=== PATIENT | male | born 1995 | race African-American/Black ===

== ENCOUNTER 2023-11-20 15:26 | Emergency (ER) | payer OTHER, SELFPAY ==
[2023-11-20 15:45] VITALS: BP 168/85; PULSE 93; RESP 18; TEMP 37.1; O2SAT 97; BMI 26.6
[2023-11-20 16:39] LABS: Influenza A - CEPHEID Flu A NEGATIVE (NEGATIVE); Influenza B - CEPHEID Flu B NEGATIVE (NEGATIVE); Respiratory Syncytial Virus Negative (Negative)
[2023-11-20 16:40] LABS: COVID-19 CEPHEID 4-PLEX PCR Negative (Negative)
--- NOTE | 2023-11-20 16:51 | ED_ITS ---
HPI - URI/Sore Throat General Chief Complaint: Upper Respiratory Symptoms Stated Complaint: Full Body Aches Time Seen by Provider: 11/20/23 16:30 Source: patient Mode of arrival: EMS History of Present Illness HPI Narrative: 28-year-old male presents to the ED with 2 days of sore throat, all-over myalgias. Patient states that starting yesterday, he started experiencing a sore throat, all-over body aches. Patient also complains of a headache that started this morning. Patient states that he consumed a lot of alcohol 3 days ago, might have passed out at the end of the evening. His symptoms started the next day. Patient states that he has been feeling very dehydrated, has been drinking a lot of water and Gatorade. Patient also complains lack of appetite. Patient denies chest pain, shortness of breath. Patient endorses subjective fever. Denies nausea, vomiting, diarrhea. Related Data Allergies Allergy/AdvReac Type Severity Reaction Status Date / Time amoxicillin AdvReac Verified 11/20/23 15:45 Penicillins AdvReac Hives Verified 11/20/23 15:45 Review of Systems Constitutional Constitutional: Denies chills, Denies fatigue, Reports fever(s), Denies frequent falls, Reports headache(s), Denies lethargy, Reports poor appetite and Denies weakness Eyes Eyes: Denies change in vision, Denies eye discharge, Denies irritation and Denies loss of vision ENT Ears, Nose, Mouth, and Throat: Denies change in voice, Denies dizziness, Reports headache(s), Denies neck pain, Reports sore throat and Denies throat swelling Cardiovascular Cardiovascular: Denies chest pain, Denies irregular heart rhythm, Denies lightheadedness, Denies palpitations, Denies dyspnea, Denies dyspnea on exertion and Denies orthopnea Respiratory Respiratory: Denies cough, Denies dyspnea, Denies dyspnea on exertion and Denies wheezing Gastrointestinal Gastrointestinal: Denies abdominal pain, Denies change in bowel habits, Denies diarrhea, Denies nausea and Denies vomiting Musculoskeletal Musculoskeletal: Denies neck pain and Denies numbness Integumentary/Breasts Skin/Breast: Denies pruritus, Denies erythema, Denies rash and Denies wounds Neurologic Neurologic: Denies behavioral changes, Denies confusion, Denies dizziness, Denies frequent falls, Reports headache(s), Denies loss of vision, Denies numbne ss and Denies weakness Psychiatric Psychiatric: Denies anxiety, Denies behavioral changes, Denies confusion, Denies depression, Denies homicidal ideation and Denies suicidal ideation Endocrine Endocrine: Denies fatigue, Denies flushing and Denies palpitations Hematologic/Lymphatic Hematologic/Lymphatic: Denies easy bruising Allergic/Immunologic Allergic/Immunologic: Denies urticaria, Denies throat swelling and Denies wheezing Patient History Social History Smoking Status: Never smoker Smoking Status: Never smoker alcohol intake frequency: 0-2 drinks per day Substance Use Type: does not use Exam Narrative Exam Narrative: Const General:?cooperative, healthy appearing and comfortable HENMT Head:?normal to inspection Ears:?hearing grossly normal bilaterally Nose:?external nose normal Face and sinus:?normal facial exam and sinuses nontender Mouth:?oral mucosae appear dry Throat:?posterior oropharynx normal Eyes General:?appearance normal, both eyes and all related structures Neck Neck:?normal visual inspection and no lymphadenopathy noted Resp Effort & Inspection:?normal respiratory effort Auscultation:?clear to auscultation bilaterally Cardio Rate:?regular rate Rhythm:?regular rhythm Neuro General:?patient alert, patient awake and patient oriented x3 Initial Vital Signs Initial Vital Signs: Vital Signs Temperature 98.7 F 11/20/23 15:45 Pulse Rate 93 H 11/20/23 15:45 Respiratory Rate 18 11/20/23 15:45 Blood Pressure 168/85 H 11/20/23 15:45 Pulse Oximetry 97 11/20/23 15:45 Oxygen Delivery Method Room Air 11/20/23 15:45 Course Orders Ordered: ED Orders 11/20/23 15:32 Covid-19 + FLU A/B + RSV - PCR Stat Vital Signs Vital signs: Vital Signs - 8 hr 11/20/23 15:45 11/20/23 17:07 Temperature 98.7 F Pulse Rate 93 H 88 Respiratory Rate 18 18 Blood Pressure 168/85 H 171/97 H Pulse Oximetry 97 99 Oxygen Delivery Method Room Air Room Air MDM - URI/Sore Throat Lab Data Labs: Lab Results 11/20/23 Range/Units 15:32 SARS-CoV-2 (PCR) Negative (Negative) Influenza A (RT-PCR) Flu a negative (NEGATIVE) Influenza B (RT-PCR) Flu b negative (NEGATIVE) RSV (PCR) Negative (Negative) MDM Narrative Medical decision making narrative: 28-year-old male presents to the ED with 2 days of sore throat, all-over myalgias. Respiratory swab negative for COVID-19, influenza, RSV. Patient's symptoms are likely due to dehydration and a viral upper respiratory infection. Recommend continued hydration. Recommend Tylenol, ibuprofen for headaches and other aches and pains, fever. Recommend follow-up with PCP as soon as possible. ED return precautions discussed with patient. Patient verbalized understanding. Medical records reviewed: Yes Discharge Plan Departure Patient Disposition: Home Clinical Impression: Upper respiratory infection Instructions: DI for Viral Upper Respiratory Infection -- Adult Activity Restrictions/Additional Instructions: You were evaluated in the ED today for a sore throat and body aches. You were negative for the flu, RSV, COVID. Your symptoms are likely due to a viral upper respiratory infection. You may take Tylenol and ibuprofen for pain and fever. Please continue to stay well hydrated. Please follow-up with your primary care provider as soon as possible. Return to the ED if you have worsening symptoms, chest pain, shortness of breath. Stand Alone Forms: Patient Portal/API
[2023-11-20 17:07] VITALS: BP 171/97; PULSE 88; RESP 18; O2SAT 99
== END 2023-11-20 17:10 | disposition home or self-care (01) ==
PROVIDERS: Emergency Medicine; Emergency Provider Student in an Organized Health Care Education/Training Program
DX: J06.9 Acute upper respiratory infection, unspecified (principal)
CPT/HCPCS: 0241U; 99281; 99282